=== PATIENT | female | born 1985 | race Caucasian/White ===

== ENCOUNTER → 2017-04-11 | Outpatient (REF) | payer OTHER | LOC: M LAB REF 17:26 | PROVIDERS: ATTEND Physician Assistant | DX: J02.9 Acute pharyngitis, unspecified (principal) ==

== ENCOUNTER 2019-01-12 18:57 | Emergency (ER) | payer OTHER ==
[~2019-01-12] VITALS: Ht 154.9 cm; Wt 78.8 kg
[2019-01-12] MEDS ORDERED: ADDE20CA3 PO (19:07)
[2019-01-12] MEDS ORDERED: PROP60TA14 PO (19:07)
[2019-01-12 19:32] LABS: BASO % 0.1 % (0.0-1.0); EOS # 0.1 10^3/uL (0.0-0.50); EOS % 1.3 % (0.0-3.0); HEMATOCRIT 41.9 % (36.0-47.0); HEMOGLOBIN 14.1 g/dl (12.0-15.5); LYMPH # 2.6 10^3/uL (1.5-4.5); LYMPH % 32.1 % (24.0-44.0); MEAN CORPUSCULAR HEMOGLOBIN 29.6 pg (27.0-33.0); MEAN CORPUSCULAR HGB CONC 33.7 g/dl (32.0-36.5); MEAN CORPUSCULAR VOLUME 87.8 fl (80.0-96.0); MONO # 0.5 10^3/uL (0.0-0.8); NEUTROPHILS # 4.8 10^3/uL (1.8-7.7); NEUTROPHILS % 60.1 % (36.0-66.0); PLATELET COUNT, AUTOMATED 207 10^3/uL (150-450); RED BLOOD COUNT 4.77 10^6/uL (4.00-5.40)
[2019-01-12] MEDS ORDERED: NS 1,000 ML IV ONE (19:45)
[2019-01-12 20:04] LABS: BLOOD UREA NITROGEN 13 MG/DL (7-18); CALCIUM LEVEL 8.7 MG/DL (8.5-10.1); CARBON DIOXIDE LEVEL 28 MEQ/L (21-32); CHLORIDE LEVEL 107 MEQ/L (98-107); CPK CREATINE PHOSPHOKINASE 50 U/L (26-192); CREATININE FOR GFR 0.88 MG/DL (0.55-1.30); GLOMERULAR FILTRATION RATE > 60.0 (>60); GLUCOSE, FASTING 101 MG/DL (70-100); POTASSIUM SERUM 3.7 MEQ/L (3.5-5.1); SODIUM LEVEL 138 MEQ/L (136-145); TROPONIN I < 0.02 NG/ML (< 0.10)
[2019-01-12 21:30] VITALS: BP 133/85
--- NOTE | 2019-01-12 22:27 | ECGEPIP ---
Stationary ECG Study [facility] - ED Test Date: 2019-01-12 Pat Name: JULIAN ADAME Department: Room: - Gender: F Side Laster Tack: PMO : 1985 Requested By: OBED Goins Order Number: [id number] Reading MD: Macy Pinon Measurements Intervals [place] Rate: 118 P: 57 AK: 157 QRS: 65 QRSD: 98 T: 17 QT: 313 QTc: 440 Interpretive Statements SINUS TACHYCARDIA ABNORMAL RHYTHM ECG NO PRIOR FOR COMPARISON Electronically Signed On 01-12-2019 22:26:48 EDT by Macy Pinon
--- NOTE | 2019-01-13 01:01 | REP ---
clinical: Acute chest pain . Comparison: None . Findings: The mediastinum and cardiac silhouette are stable and within normal limits for portable technique. The lung glynn are clear without acute consolidation, effusion, or pneumothorax. Skeletal structures are intact. Impression: No acute cardiopulmonary process appreciated. Electronically Signed by Alexander Bello MD 01/13/2019 12:53 A
== END 2019-01-12 21:34 | disposition home or self-care (01) ==
LOC: M ED 18:57
DX: I47.1 Supraventricular tachycardia (principal); F90.9 Attention-deficit hyperactivity disorder, unspecified type; Z79.899 Other long term (current) drug therapy; F17.210 Nicotine dependence, cigarettes, uncomplicated